=== PATIENT | female | born 1985 | race Caucasian/White ===

== ENCOUNTER → 2023-07-13 06:59 | Outpatient (REF) | payer BC, SELFPAY ==
[2023-07-13 08:07] LABS: % Basophils 0.4 % (0-2); % Eosinophils 1.5 % (0-6); % Immature Granulocytes 0.4 % (0-0.5); % Lymphocytes 32.8 % (20.5-51.1); % Monocytes 6.9 % (1.7-9.3); Absolute Eosinophils 0.1 10^3/uL (0-0.7); Absolute Lymphocytes 2.4 10^3/uL (1.2-3.4); Absolute Monocytes 0.5 10^3/uL (0.1-0.6); Absolute Neutrophils 4.3 10^3/uL (1.4-6.5); Hematocrit 40.8 % (37.0-47.0); Mean Corp Hgb Conc. 34.3 g/dL (33.0-37.0); Mean Corpuscular Volume 90.3 fL (81.0-99.0); Nucleated Red Blood Cells % 0 %; Platelet Count 210 10^3/uL (130-400); Red Blood Cell Count 4.52 10^6/uL (4.20-5.40); White Blood Cell Count 7.3 10^3/uL (4.8-10.8)
[2023-07-13 08:52] LABS: ALT (SGPT) 17 U/L (0-35); AST (SGOT) 19 U/L (14-36); Albumin 4.7 g/dl (3.5-5.0); Alkaline Phosphatase 44 U/L (38-126); Blood Urea Nitrogen 13 mg/dl (7-17); Calcium 9.4 mg/dl (8.4-10.2); Carbon Dioxide 26 mmol/L (22-30); Chloride 107 mmol/L (98-107); Glucose 91 mg/dl (70-99); HDL Cholesterol 48 mg/dl; LDL Cholesterol, Calculated 133 mg/dl; Potassium 4.3 mmol/L (3.5-5.1); Sodium 140 mmol/L (135-145); Total Bilirubin 0.6 mg/dl (0.2-1.3); Total Cholesterol 198 mg/dl (50-199); Total Protein 7.7 g/dl (6.3-8.2); Triglyceride 85 mg/dl (10-149); Very Low Density Lipoprotein 17 mg/dl (0-30); eGFR > 60.00
[2023-07-13 10:57] LABS: TSH 1.24 uIU/ml (0.47-4.68)
== END ==
LOC: REG 06:59
PROVIDERS: ATTENDING PHYSICIAN Physician Assistant Medical
DX: Z00.00 Encounter for general adult medical examination without abnormal findings (principal)
CPT/HCPCS: 36415; 80053; 80061; 84443; 85025

== ENCOUNTER → 2024-01-16 18:32 | Outpatient (REF) | payer BC, SELFPAY | LOC: CLAB 18:32 | PROVIDERS: ATTENDING PHYSICIAN Physician Assistant Medical | DX: J02.9 Acute pharyngitis, unspecified (principal) | CPT/HCPCS: 87070 ==

== ENCOUNTER → 2024-06-28 08:06 | Outpatient (REF) | payer BC, SELFPAY ==
[2024-06-28 08:39] LABS: % Basophils 0.3 % (0-2); % Eosinophils 1.5 % (0-6); % Immature Granulocytes 0.2 % (0-0.5); % Lymphocytes 33.1 % (20.5-51.1); % Monocytes 5.9 % (1.7-9.3); Absolute Eosinophils 0.1 10^3/uL (0-0.7); Absolute Monocytes 0.4 10^3/uL (0.1-0.6); Absolute Neutrophils 3.5 10^3/uL (1.4-6.5); Hematocrit 43.2 % (37.0-47.0); Hemoglobin 14.5 g/dL (12.0-16.0); Mean Corp Hgb Conc. 33.6 g/dL (33.0-37.0); Mean Corpuscular Hgb 30.5 pg (27.0-31.0); Mean Corpuscular Volume 90.8 fL (81.0-99.0); Mean Platelet Volume 9.5 fL (7.4-10.4); Nucleated Red Blood Cells % 0 %; Platelet Count 183 10^3/uL (130-400); Red Blood Cell Count 4.76 10^6/uL (4.20-5.40); Red Cell Dist. Width 12.2 % (11.5-14.5)
[2024-06-28 09:51] LABS: ALT (SGPT) 16 U/L (0-35); AST (SGOT) 17 U/L (14-36); Albumin 4.4 g/dl (3.5-5.0); Alkaline Phosphatase 40 U/L (38-126); Blood Urea Nitrogen 15 mg/dl (7-17); Calcium 9.4 mg/dl (8.4-10.2); Carbon Dioxide 27 mmol/L (22-30); Chloride 106 mmol/L (98-107); Glucose 89 mg/dl (70-99); HDL Cholesterol 56 mg/dl; LDL Cholesterol, Calculated 135 mg/dl; Potassium 4.3 mmol/L (3.5-5.1); Sodium 141 mmol/L (135-145); Total Bilirubin 0.6 mg/dl (0.2-1.3); Total Cholesterol 207 mg/dl (50-199); Total Protein 7.1 g/dl (6.3-8.2); Triglyceride 82 mg/dl (10-149); Very Low Density Lipoprotein 16 mg/dl (0-30); eGFR > 60.00
[2024-06-28 10:05] LABS: TSH 0.99 uIU/ml (0.47-4.68)
== END ==
LOC: REG 08:06
PROVIDERS: ATTENDING PHYSICIAN Physician Assistant Medical
DX: Z00.00 Encounter for general adult medical examination without abnormal findings (principal)
CPT/HCPCS: 36415; 80053; 80061; 84443; 85025

== ENCOUNTER → 2024-08-02 08:33 | Outpatient (REF) | payer BC, SELFPAY ==
[2024-08-02 13:34] LABS: Iron 121 ug/dl (37-170)
[2024-08-02 13:47] LABS: Percent Saturation 41 % (20-50); Total Iron Binding Capacity 295 ug/dl (265-497)
[2024-08-02 17:00] LABS: Free T4 1.15 ng/dl (0.78-2.19)
[2024-08-02 17:18] LABS: Ferritin 23.9 ng/ml (6.24-137)
== END ==
LOC: REG 08:33
PROVIDERS: ATTENDING PHYSICIAN Physician Assistant Medical
DX: R00.2 Palpitations (principal)
CPT/HCPCS: 36415; 82728; 83540; 83550; 84439

== ENCOUNTER → 2024-08-14 09:38 | Outpatient (REF) | payer BC, SELFPAY | LOC: RCS 09:38 | PROVIDERS: ATTENDING PHYSICIAN Internal Medicine Cardiovascular Disease; FAMILY PHYSICIAN Physician Assistant Medical | DX: R00.2 Palpitations (principal) | CPT/HCPCS: 93306 ==

== ENCOUNTER → 2024-09-17 13:48 | Outpatient (REF) | payer BC, SELFPAY ==
[2024-09-17 15:43] LABS: C-Reactive Protein < 5.00 mg/L (0.0-10.00)
[2024-09-17 16:00] LABS: Vitamin D, 25-OH*** 40.2 ng/mL (30-80)
[2024-09-17 17:01] LABS: Erythrocyte Sed Rate 4 mm/hour (0-20)
[2024-09-17 19:44] LABS: Vitamin B12 784 pg/ml (239-931)
[2024-09-19 11:34] LABS: Rheumatoid Agglutinin Less Than 10 IU (<10 IU)
[2024-09-19 13:28] LABS: Lyme Antibody Screen, EIA Negative (Negative)
== END ==
LOC: REG 13:48
PROVIDERS: ATTENDING PHYSICIAN Physician Assistant Medical
DX: M25.50 Pain in unspecified joint (principal); R20.2 Paresthesia of skin; E55.9 Vitamin D deficiency, unspecified
CPT/HCPCS: 36415; 82306; 82607; 82746; 85652; 86140; 86200; 86430; 86618